=== PATIENT | female | born 1990 | race Caucasian/White ===

== ENCOUNTER 2023-01-23 16:45 | Emergency (ER) | payer OTHER ==
[~2023-01-23] VITALS: Ht 162.6 cm; Wt 52.2 kg
[2023-01-23 17:45] VITALS: BP 157/104; PULSE 84; RESP 18; TEMP 97.4; O2SAT 100
[2023-01-23] MEDS ORDERED: ACETAMINOPHEN 325 MG TAB PO ONE (19:30)
== END 2023-01-23 21:40 | disposition home or self-care (01) ==
LOC: MED 16:45
DX: S90.212A Contusion of left great toe with damage to nail, initial encounter (principal); Z88.6 Allergy status to analgesic agent; W20.8XXA Other cause of strike by thrown, projected or falling object, initial encounter; Y93.89 Activity, other specified; Y92.512 Supermarket, store or market as the place of occurrence of the external cause; Y99.8 Other external cause status
CPT/HCPCS: 11740; 73660; 99284